=== PATIENT | female | born 1985 | race Caucasian/White ===

== ENCOUNTER 2017-10-16 12:54 | Emergency (ER) | payer OTHER ==
[~2017-10-16] VITALS: Ht 160 cm; Wt 68.0 kg
[~2017-10-16 12:54] MED LIST: SPRINTEC1 EACH PO; VITAMIN D1000 UNI1 PO
[2017-10-16] MEDS ORDERED: PRENATAL PO (13:16)
[2017-10-16 13:25] LABS: URINE BILIRUBIN NEGATIVE (Negative); URINE BLOOD NEGATIVE (Negative); URINE CLARITY CLEAR; URINE COLOR YELLOW; URINE GLUCOSE-RANDOM NEGATIVE (Negative); URINE KETONES NEGATIVE (Negative); URINE LEUKOCYTES-REFLEX TRACE (Negative); URINE NITRITE-REFLEX NEGATIVE (Negative); URINE PROTEIN NEGATIVE (Negative); URINE UROBILINOGEN 0.2 E.U./dl (0.2-1.0)
[2017-10-16 13:59] LABS: ABSOLUTE BASOPHILS 0.1 thou/uL (0.0-0.2); ABSOLUTE EOSINOPHILS 0.1 thou/uL (0.0-0.7); ABSOLUTE LYMPHOCYTES 2.3 thou/uL (0.8-5.3); ABSOLUTE MONOCYTES 0.5 thou/uL (0.0-1.2); ABSOLUTE NEUTROPHILS 4.6 thou/uL (1.6-8.1); BASOPHILS 0.9 %; HEMATOCRIT 39.5 % (37.0-47.0); HEMOGLOBIN 13.4 gm/dL (12.0-15.0); LYMPHOCYTES 30.5 %; MCH 30.2 pg (26.0-34.0); MONOCYTES 6.5 %; MPV 8.9 fl. (7.2-11.1); NUCLEATED RBCS 0 /100WBC; PLATELET COUNT* 266 thou/uL (150-400); POLYS 61.1 %; RBC 4.44 mil/uL (4.20-5.00); RDW-CV 12.3 % (10.5-14.5); WBC 7.5 thou/uL (4.0-11.0)
[2017-10-16 14:07] LABS: ANION GAP 9 mmol/L (7-16); BUN 8 mg/dL (7-18); CALCIUM 8.7 mg/dL (8.5-10.1); CHLORIDE 104 mmol/L (98-107); CO2 29 mmol/L (21-32); CREATININE 0.9 mg/dL (0.6-1.3); GLUCOSE 129 mg/dL (70-99); POTASSIUM 3.5 mmol/L (3.5-5.1); SODIUM 142 mmol/L (136-145)
[2017-10-16 14:09] LABS: BACTERIA-REFLEX None Seen /HPF (None Seen); CASTS None Seen /LPF (None Seen); CRYSTALS None Seen /LPF (None Seen); MUCUS None Seen strn/LPF (None Seen); SQUAMOUS 4-10 Moderate /LPF (0-3); URINE RBC None Seen /HPF (0-2); URINE WBC-REFLEX 0-5 Rare /HPF (0-5)
[2017-10-16 14:17] LABS: ALBUMIN 3.8 g/dL (3.4-5.0); ALKALINE PHOSPHATASE 85 U/L (46-116); SGOT 23 U/L (15-37); SGPT 42 U/L (30-65); TOTAL BILIRUBIN 0.3 mg/dL (<0.1-1.0); TOTAL PROTEIN 7.1 g/dL (6.4-8.2); TROPONIN-I LEVEL <0.06 ng/mL (<0.06)
[2017-10-16 14:25] LABS: PROTIME 9.7 Seconds (9.20-11.50)
[2017-10-16 15:19] VITALS: BP 125/73
--- NOTE | 2017-10-16 16:49 | EKG ---
[place] [address] ELECTROCARDIOGRAM REPORT Name: ULISES CABRERA [id number] Admission: 10/16/17 Attend Phys: Discharge: 10/16/17 Date of : 89 Report #: [id number] THIS REPORT FOR: //name// [facility] ED Test Date: 2017-10-16 Test Time: 13:26:49 Pat Name: ULISES CABRERA Department: Room: Gender: F Packer Insulation: RUBI : 1985 Requested By: Martita Argueta Order Number: [id number] MD: Guru Zuniga Measurements Intervals [place] Rate: 114 P: 53 OR: 129 QRS: 10 QRSD: 85 T: -3 QT: 319 QTc: 440 Interpretive Statements Sinus tachycardia No previous ECG available for comparison Electronically Signed On 10-16-2017 16:49:12 [employer] by Guru Zuniga [email or web address] <ELECTRONICALLY SIGNED> By: Guru Zuniga MD, [facility] 10/16/17 [id number] [id number] Guru Zuniga MD, FACC /EPI
== END 2017-10-16 15:19 | disposition home or self-care (01) ==
LOC: M.ERS 12:54
PROVIDERS: Nurse Practitioner Family
DX: R42 Dizziness and giddiness (principal); Z88.0 Allergy status to penicillin

== ENCOUNTER → 2018-03-28 | Outpatient (CLI) | payer OTHER ==
[~2018-03-28] MED LIST changes: +PRENATAL PO
== END ==
LOC: M.LAB 14:21
DX: O46.90 Antepartum hemorrhage, unspecified, unspecified trimester (principal); Z3A.00 Weeks of gestation of pregnancy not specified

== ENCOUNTER → 2018-04-03 | Outpatient (CLI) | payer OTHER | LOC: M.LAB 14:40 | DX: O46.90 Antepartum hemorrhage, unspecified, unspecified trimester (principal); Z3A.00 Weeks of gestation of pregnancy not specified ==

== ENCOUNTER → 2018-06-01 | Outpatient (CLI) | payer OTHER | LOC: M.LAB 15:17 | DX: Z32.01 Encounter for pregnancy test, result positive (principal); Z72.89 Other problems related to lifestyle ==

== ENCOUNTER → 2018-11-06 | Outpatient (CLI) | payer OTHER ==
[2018-11-06 11:04] LABS: HEMATOCRIT 31.7 % (37.0-47.0); HEMOGLOBIN 10.9 gm/dL (12.0-15.0); MCH 31.7 pg (26.0-34.0); MCHC 34.5 g/dL (28.0-37.0); MCV 91.7 fL (80.0-100.0); MPV 8.4 fl. (7.2-11.1); RBC 3.45 mil/uL (4.20-5.00); RDW-CV 12.8 % (10.5-14.5); WBC 10.3 thou/uL (4.0-11.0)
== END ==
LOC: M.LAB 09:55
DX: Z36.9 Encounter for antenatal screening, unspecified (principal)

== ENCOUNTER → 2018-11-13 | Outpatient (CLI) | payer OTHER | LOC: M.LAB 08:43 | DX: O99.810 Abnormal glucose complicating pregnancy (principal); Z3A.00 Weeks of gestation of pregnancy not specified ==

== ENCOUNTER → 2019-01-09 | Outpatient (CLI) | payer OTHER | LOC: M.ULTRA 10:00 | DX: M79.662 Pain in left lower leg (principal); M79.89 Other specified soft tissue disorders ==

== ENCOUNTER → 2019-03-19 | Outpatient (CLI) | payer OTHER | LOC: M.LAB 09:09 | DX: O24.410 Gestational diabetes mellitus in pregnancy, diet controlled (principal); Z3A.00 Weeks of gestation of pregnancy not specified ==

== ENCOUNTER → 2019-09-05 | Outpatient (CLI) | payer OTHER | LOC: M.LAB 12:41 | DX: R76.0 Raised antibody titer (principal) ==